=== PATIENT | female | born 1965 | race Caucasian/White ===

== ENCOUNTER → 2020-09-21 | Outpatient (CLI) | payer OTHER ==
--- NOTE | 2020-09-21 14:40 | P.GSHP ---
History of Present Illness H&P Date: 09/21/20 Chief Complaint: abnormal right breast mammogram Samantha is a 55 year old white female seen in consultation for Dr. Candice Dong regarding a mammographic abnormality in her right breast. This was her first 3-D mammogram. It revealed extensive group central medial microcalcifications in the right breast middle depth. This was these were felt to be unchanged however there was some architectural distortion associated with these. The patient also was noted to have chronic nodularity in the 6 to 7 o'clock position of the right breast with coarse dystrophic calcifications probable degenerating fibroid. In the left breast a benign oral cyst calcification was noted. The recommendation was stereotactic core biopsy of the medial microcalcifications in the right breast. The patient does not feel any lumps masses or nodules of concern. No nipple discharge. No new breast pain. She has had bilateral open breast biopsies in the remote past. These were benign. Caffeine: 4 cups of coffee/day Nicotine: Negative Theophylline: occasional Family history: Negative Hormonal history: Menarche: 13 , breast fed: yes, age at first 31 menopause: 53 BCP:no hormones: none Surgical history: C-sections bilateral breast biopsies benign Toenail removed Medical history: none Social history: Nicotine: Negative Alcohol: Occasional Drugs: Negative - Constitutional Constitutional: Denies chills, Denies fever - EENT Comment: wears glasses Ears: deny: decreased hearing, tinnitus Ears, nose, mouth and throat: Denies headache, Denies sore throat - Breasts Breasts: bilateral: as per HPI - Cardiovascular Cardiovascular: Denies chest pain, Denies shortness of breath - Respiratory Respiratory: Denies cough, Denies 7 - Gastrointestinal Gastrointestinal: Denies abdominal pain, Denies diarrhea, Denies nausea, Denies vomiting - Genitourinary (Female) Genitourinary: Denies dysuria, Denies hematuria - Menstruation Menstruation: Reports postmenopausal - Musculoskeletal Musculoskeletal: Denies myalgias - Integumentary Integumentary: Denies pruritus, Denies rash - Neurological Comment: hand tendon pain - Psychiatric Psychiatric: Denies anxiety, Denies depression - Endocrine Endocrine: Denies fatigue, Denies weight change - Hematologic/Lymphatic Comment: none - Allergic/Immunologic Allergic/Immunologic: Reports as per HPI Medications and Allergies Home Medications Medication Instructions Recorded Confirmed Type Calcium Carbonate/Vitamin D3 1 each PO QAM 09/21/20 09/21/20 History [Calcium 500Mg-Vit D3 15Mcg (600 unit)] Cholecalciferol [Vitamin D3 (25 1,000 unit PO HS 09/21/20 09/21/20 History Mcg = 1000 Iu)] Fish Oil/Dha/Epa [Fish Oil 1,200 1 each PO BID 09/21/20 09/21/20 History mg Fish Oil] Magnesium 200 mg PO QAM 09/21/20 09/21/20 History Multivitamins, Thera [Multivitamin 1 tab PO QAM 09/21/20 09/21/20 History (formulary)] Allergies Allergy/AdvReac Type Severity Reaction Status Date / Time adhesive tape Allergy Rash/Hives Unverified 09/21/20 14:06 codeine Allergy Rash/Hives Unverified 09/21/20 14:06 Penicillins Allergy Rash/Hives Unverified 09/21/20 14:06 Surgical - Exam BMI 24 - General well developed, well nourished, no distress - Eyes normal ocular movement - ENT no hearing loss, no congestion - Neck no masses, trachea midline - Respiratory normal respiratory effort, clear to auscultation - Cardiovascular Rhythm: regular Heart Sounds: normal: S1, S2 - Abdomen Abdomen: soft, non tender, no guarding, no rigid, no rebound - Integumentary normal turgor - Neurologic no disoriented, no combative - Musculoskeletal normal gait - Psychiatric oriented to time, oriented to person, oriented to place, speech is normal, memory intact breast exam: BRA 34D inspection: bilateral grad 2 ptosis palpation: Right breast: Multi-positional exam well-healed scar from prior surgery fibrocystic changes. Dense breast tissue no discrete dominant masses or nodules of concern Right axilla: Approximately 1-11/2 cm palpable lymph node Left breast: Multi-positional exam fibrocystic changes, dense breasts, well- healed scar from prior biopsy Left axilla: No adenopathy of concern Results Mammogram results reviewed Assessment and Plan Assessment: Impression: 1. Dense fibroglandular breast tissue 2. Abnormal right breast mammogram 3. Right axillary palpable lymph node Plan: 1. Stereotactic core biopsy right breast 2. Ultrasound right axillary lymph node 3. follow up 1 week after biopsy Risk benefits of stereotactic core biopsy discussed with the patient. These include but are not limited to bleeding, infection, reaction to the anesthetic. Additionally the need to do this via 3-D stereo biopsy versus a 2-D stereo table will be determined by the radiologist. Option of watchful waiting versus open biopsy were discussed but not recommended. CC: Dr. Harvey, Yamel Anguiano N.P.
[2020-09-21 14:49] VITALS: BP 119/69; PULSE 75; RESP 16; TEMP 98.4
--- NOTE | 2020-09-22 09:08 | USB ---
Reason for exam: clinical finding. Indicated problem(s): large axillary lymph nodes in the right breast. Physical Findings: Breast exam performed by Dr. Steve. US Breast Axilla RT Technologist: Kaleigh Gallegos Right breast axilla ultrasound demonstrates no cystic or solid lesion seen. These results were verbally communicated with the patient and result sheet given to the patient on 09/21/20. ASSESSMENT: Negative, BI-RAD 1 RECOMMENDATION: Stereotactic core biopsy of the right breast. Patient is already scheduled for biopsy on 10/04/20.
== END | disposition home or self-care (01) ==
LOC: WWCWWP 13:35
PROVIDERS: ATTEND Surgery
DX: R59.0 Localized enlarged lymph nodes (principal)

== ENCOUNTER → 2020-10-04 | Day surgery (SDC) | payer OTHER ==
[2020-10-04 07:19] VITALS: RESP 16
[2020-10-04 09:44] VITALS: BP 142/76; PULSE 74; TEMP 98.8
--- NOTE | 2020-10-04 16:08 | MM ---
EXAMINATION TYPE: MG stereo VAD BX RT DATE OF EXAM: 10/04/2020 COMPARISON: 08/10/2020 CLINICAL HISTORY: 55-year-old female referred for stereotactic core needle biopsy of right upper inner quadrant microcalcifications and architectural distortion. TECHNIQUE: Stereotactic guided core biopsy of the right breast. FINDINGS: The procedure of stereotactic guided core biopsy was explained to the patient. Benefits, alternatives, and risks were discussed. An informed consent was then obtained. The shortness pathway for biopsy was chosen. Shortness pathway was a superior approach. I performed the localization followed by the remainder of the procedure. A vacuum assisted biopsy gun was used to obtain 12 core samples. The patient tolerated the procedure well. The biopsy was complicated by bleeding and hematoma formation. Approximately 150 ML of blood loss was measured in the collection canister. Patient was kept in the radiology department for short stay after the procedure and then discharged home in stable condition. Targeted calcifications are identified in specimen mammogram. Post biopsy mammogram shows the clip to appear in satisfactory position relative to the targeted area of concern on the preprocedure images. Residual calcifications are present along the inferior biopsy margin. Associated hematoma on mammogram. The nurse provided prolonged compression at the biopsy site with successful hemostasis. IMPRESSION: SUCCESSFUL, STEREOTACTIC GUIDED CORE BIOPSY OF AREA OF CONCERN IN THE UPPER INNER QUADRANT RIGHT BREAST, FULL PATHOLOGY RESULTS TO FOLLOW. NOTE HEMATOMA FORMATION FOLLOWING THE BIOPSY. (THE TARGETED AREA IS COMPRISED OF A LARGE GROUP OF MICROCALCIFICATIONS AND UNDERLYING ARCHITECTURAL DISTORTION). 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 See Surgical Pathology Cancer Case Summary and Comment. Recommendation Surgical consult of the right breast. REINIER
--- NOTE | 2020-10-05 10:01 | USB ---
Reason for exam: additional evaluation requested from abnormal screening. US Breast Limited RT Right limited breast ultrasound including focal area of concern, retroareolar and axilla demonstrates a 2.6mm duct ectasia at 2 o'clock, a 0.4 x 0.4 x 0.3cm oval, benign cyst with debris at 3 o'clock, a 0.4 x 0.4 x 0.4cm oval, benign, cyst with debris at 3 o'clock and a 3.8cm duct ectasia at the posterior nipple. These results were verbally communicated with the patient and result sheet given to the patient on 10/04/20. ASSESSMENT: Suspicious, BI-RAD 4 RECOMMENDATION: Stereotactic core biopsy of the right breast.
== END ==
LOC: RADMAMWWP 06:55
PROVIDERS: ATTEND Surgery
DX: D05.11 Intraductal carcinoma in situ of right breast (principal); L76.01 Intraoperative hemorrhage and hematoma of skin and subcutaneous tissue complicating a dermatologic procedure
CPT/HCPCS: 88305; 88342; 88341; 19081; 76642; A4648; J2001

== ENCOUNTER → 2020-10-12 | Outpatient (CLI) | payer OTHER ==
[2020-10-12 10:16] VITALS: BP 111/69; PULSE 70; RESP 18; TEMP 98.4
--- NOTE | 2020-10-12 11:01 | P.PN ---
Subjective Progress Note Date: 10/12/20 Principal diagnosis: stage IA right breast cancer Samantha is a 55 year old white female status post stereotactic core biopsy of the right breast on . Pathology revealed a 2 mm invasive ductal carcinoma grade 1/2 arising in a background of DCIS. The area of DCIS on the mammogram was approximately 4 cm in size. Postprocedure the patient did develop a hematoma. This is resolving. She is doing well at this time. Objective - Vital Signs Vital signs: Vital Signs Temp 98.4 F 10/12/20 10:11 Pulse 70 10/12/20 10:11 Resp 18 10/12/20 10:11 BP 111/69 10/12/20 10:11 Pulse Ox 100 10/12/20 10:11 Intake & Output 10/11/20 10/12/20 10/12/20 18:59 06:59 18:59 Weight 63.503 kg - Exam BMI 24 - Constitutional General appearance: Present: average body habitus - EENT Eyes: Present: EOMI ENT: Present: hearing grossly normal - Neck Neck: Present: normal ROM - Respiratory Respiratory: bilateral: CTA - Cardiovascular Rhythm: regular Heart sounds: normal: S1, S2 - Gastrointestinal General gastrointestinal: Present: normal bowel sounds, soft - Integumentary Integumentary Comment(s): Achymosis direct sterile core biopsy site, a hematoma present approximately 3 x 2 cm in size Integumentary: Present: normal turgor - Musculoskeletal Musculoskeletal: Present: gait normal - Psychiatric Psychiatric: Present: A&O x's 3, appropriate affect - Additional findings Additional findings: Breast exam: right breast biopsy site with some ecchymosis, hematoma approximately 3 x 2 cm in size, no evidence of infection Right breast is smaller than the left breast Assessment and Plan Assessment: Impression: 1. Stereotactic core biopsy right breast/stage IA invasive ductal carcinoma, DCIS 2. Proximally 4 cm area of microcalcifications suspicious for DCIS right breast 3. We have discussed genetic testing and patient would like to have this done 4. High cholesterol Plan: 1. Presentation of case at tumor board 2. Genetic testing 3. Surgical intervention/we have discussed mastectomy plus or minus reconstruction versus lumpectomy, secondary to the size of the DCIS ( about 4 cm)we are uncertain as to whether our margins may be negative and if they were to be positive we have discussed the need for a mastectomy at this time she would like to attempt a lumpectomy if possible 4. Patient understands that there will be asymmetry between the breast and that she may need to have a symmetry procedure performed of the left breast in the future Surgical plan at this time: Needle localization with bracketing of the area of concern in the right breast, partial mastectomy, possible onco-plastic tissue transfer, possible mastopexy, sentinel node injection right breast, sentinel node biopsy, possible axillary node dissection; using a marker I have drawn on her breast possible lines for incision for resection so she would be able to visualize what this might look like. Risk and benefits of the procedure been discussed with the patient. These include but are not limited to bleeding, infection, reaction to the anesthetic. She understands of margins were to be positive she would need further excision. She also understands there will be asymmetry between the breast. She wishes to proceed. Genetic testing is requested and if this were to be positive she would opt for bilateral mastectomy. CC: Yamel Anguiano/Dr. Harvey encounter 40 minutes, > 50% of time in planning and counselling
== END | disposition home or self-care (01) ==
LOC: WWCWWP 09:43
PROVIDERS: ATTEND Surgery
DX: Z53.9 Procedure and treatment not carried out, unspecified reason (principal)

== ENCOUNTER → 2020-11-06 | Outpatient (CLI) | payer OTHER ==
--- NOTE | 2020-11-06 07:55 | BMR ---
EXAMINATION TYPE: MR breast BILAT wo/w con DATE OF EXAM: 11/06/2020 COMPARISON: Outside 3-D mammogram August 10, 2020 BI-RADS 4 and older outside mammograms. Right br east axilla ultrasound September 21, 2020 BI-RADS 1. Right breast limited ultrasound October 04, 2020 BI-RADS 4. HISTORY: Malignant neoplasm of breast invasive low grade ductal carcinoma in situ on stereotactic roderick ded core biopsy August 10, 2020 TECHNIQUE: A series of fat and water weighted images in the long and short axis views of both breasts are obtained in conjunction with dynamic contrast MRI with subtraction technique. The patient was i njected with 6.5 mL intravenous Gadavist gadolinium contrast. Three-dimensional and additional post processing imaging is created on independent workstation and reviewed during official interpretation of this study. FINDINGS: Breast parenchyma redemonstrated extremely dense. T2 and STIR weighted images show scattere d tiny thin-walled cysts on background extremely dense fibroglandular tissue. No suspicious axillary adenopathy is noted bilaterally. Dynamic postcontrast imaging shows [id number]-wb-psiecoth symmetric nodula r background enhancement evaluation slightly suboptimal. Delayed dynamic postcontrast imaging shows n o evidence for intramammary adenopathy. With regards to the left breast there is a 6 x 4 mm oval well-circumscribed lesion middle depth media l aspect left breast image 75 series 701 for reference at level of nipple that stands out on a backgr ound of more smaller nodular enhancement. Dynamic postcontrast imaging shows gradual enhancement sugg esting benign etiology. No suspicious skin thickening. The chest wall is intact. Regards to the right breast there is a slightly lobulated 1.4 x 1.3 x 1.5 cm thin-walled T1 hyperinte nse and T2 hyperintense fluid collection consistent with postbiopsy hematoma in the upper inner quadr ant anterior to middle depth with with artifact from biopsy clip along its anterior lateral aspect sl ightly more superior in location corresponding to stereotactic guided core biopsy October 04. Some r esidual surrounding enhancement is seen. Small tiny focus of suspicious enhancement with uptake and w ashout along the lateral central margin of the resection cavity seen on both processing images. Remai nder right breast shows no pathologic enhancement or enhancing masses. No abnormal skin thickening. C hest wall is intact. IMPRESSION: Known biopsy-proven malignancy right breast. Single enhancing 6 x 4 mm lesion left breast has progressive enhancement consistent with benign etiology. No convincing evidence for multicentric invasive neoplasm on MRI. BI-RADS 6 biopsy-proven cancer right breast. BI-RADS 2 benign findings left breast Recommendation: Appropriate surgical management for group of calcifications right breast, complete ex cision is advised, right shows minimal suspicious enhancement along the central lateral aspect of the post sampling hematoma.
== END | disposition home or self-care (01) ==
LOC: RADMRIMAIN 05:57
PROVIDERS: ATTEND Surgery
DX: C50.111 Malignant neoplasm of central portion of right female breast (principal); N64.89 Other specified disorders of breast
CPT/HCPCS: 77049; C8937; A9585

== ENCOUNTER → 2020-11-09 | Outpatient (CLI) | payer OTHER ==
[2020-11-09 16:06] VITALS: BP 117/72; PULSE 68; RESP 18; TEMP 98.1
--- NOTE | 2020-11-09 16:22 | P.PN ---
Subjective Progress Note Date: 11/09/20 Principal diagnosis: stage IA right breast cancer Samantha is a 55 year old white female seen in consultation for Dr. Candice Dong regarding a mammographic abnormality in her right breast. This was her first 3-D mammogram. It revealed extensive group central medial micro calcifications in the right breast middle depth. This was these were felt to be unchanged however there was some architectural distortion associated with these. The patient also was noted to have chronic nodularity in the 6 to 7 o'clock position of the right breast with coarse dystrophic calcifications probable degenerating fibroid. In the left breast a benign appearing cyst calcification was noted. The recommendation was stereotactic core biopsy of the medial microcalcifications in the right breast. The patient does not feel any lumps masses or nodules of concern. No nipple discharge. No new breast pain. She has had bilateral open breast biopsies in the remote past. These were benign. The patient had a stereotactic core biopsy performed on [id number]. Pathology revealed a 2 mm focus of invasive ductal carcinoma grade 1/2 arising in a background of DCIS. This was ER+WI+Her2-G1. She did not have genetic testing done. The patient had bilateral breast MRI performed on [id number]. The biopsy-proven cancer in the right breast was identified. Otherwise no lesions of concern in the right breast. No findings of concern were noted in the left breast. Caffeine: 4 cups of coffee/day Nicotine: Negative Theophylline: occasional Family history: Negative Hormonal history: Menarche: 13 , breast fed: yes, age at first 31 menopause: 53 BCP:no hormones: none Surgical history: C-sections bilateral breast biopsies benign Toenail removed Medical history: none Social history: Nicotine: Negative Alcohol: Occasional Drugs: Negative - Constitutional Constitutional: Denies chills, Denies fever - EENT Comment: wears glasses Ears: deny: decreased hearing, tinnitus Ears, nose, mouth and throat: Denies headache, Denies sore throat - Breasts Breasts: bilateral: as per HPI - Cardiovascular Cardiovascular: Denies chest pain, Denies shortness of breath - Respiratory Respiratory: Denies cough, - Gastrointestinal Gastrointestinal: Denies abdominal pain, Denies diarrhea, Denies nausea, Denies vomiting - Genitourinary (Female) Genitourinary: Denies dysuria, Denies hematuria - Menstruation Menstruation: Reports postmenopausal - Musculoskeletal Musculoskeletal: Denies myalgias - Integumentary Integumentary: Denies pruritus, Denies rash - Neurological Comment: hand tendon pain - Psychiatric Psychiatric: Denies anxiety, Denies depression - Endocrine Endocrine: Denies fatigue, Denies weight change - Hematologic/Lymphatic Comment: none - Allergic/Immunologic Allergic/Immunologic: Reports as per HPI Objective - Constitutional General appearance: Present: average body habitus - EENT Eyes: Present: EOMI ENT: Present: hearing grossly normal - Neck Neck: Present: normal ROM - Respiratory Respiratory: bilateral: CTA - Cardiovascular Rhythm: regular Heart sounds: normal: S1, S2 - Gastrointestinal General gastrointestinal: Present: normal bowel sounds, soft - Integumentary Integumentary: Present: normal turgor - Musculoskeletal Musculoskeletal: Present: gait normal - Psychiatric Psychiatric: Present: A&O x's 3, appropriate affect, intact judgment & insight - Additional findings Additional findings: brest exam: BRA: 34C inspection: Right nipple areolar complex slightly lower than the left, grade 2/3 bilateral again with right slightly lower than the left Palpation: Right breast: Multiple positional exam reveals the area of stereo biopsy with resolving hematoma in the upper inner quadrant otherwise no dominant masses or nodules of concern Right axilla: No adenopathy of concern Left breast: Multiple positional exam fibrocystic changes, no dominant masses or nodules of concern Left axilla: No adenopathy of concern Assessment and Plan Assessment: Mammogram and MRI reports reviewed, case presented at tumor board Impression: 1. Stage I a right breast invasive ductal carcinoma upper inner quadrant 2. Approximately 4 cm of microcalcification suspicious for DCIS right breast 3. Genetic testing discussed however insurance declined this 4. High cholesterol 5. Case was presented at tumor board and MRI recommended Plan: 1. Needle localization lumpectomy right breast via mastopexy incision if possible, if not standard incision will be made 2 possible onco-plastic transfer 3. [place] node injection, sentinel node biopsy, possible axillary node dissection Risks and benefits of the procedure discussed with the patient. These include but are not limited to bleeding, infection, possible reaction to the anesthetic. She understands margins are positive she may need further excision. The risk of decreased nipple areolar sensation is discussed as well as necrosis she understands and wishes to proceed. She also understands she will be asymmetry between the breasts. She wishes to proceed. We have discussed the option of a mastectomy and at this time she would not like to have a mastectomy.
== END | disposition home or self-care (01) ==
LOC: WWCWWP 15:50
PROVIDERS: ATTEND Surgery
DX: Z53.9 Procedure and treatment not carried out, unspecified reason (principal)

== ENCOUNTER 2020-12-05 07:12 | Day surgery (SDC) | payer OTHER ==
[2020-11-29 13:20] VITALS: BMI 24.0
[~2020-12-05 07:12] MED LIST: DEXAMETHASONE SOD PHOSPHATE 4 MG/ML 1 ML VIAL IV ONE; HEPARIN SODIUM,PORCINE 5,000 UNIT/ML 1 ML VIAL SQ PRN; HYDROmorphone 0.5 MG/0.5 ML SYRINGE IVP PRN; LACTATED RINGERS 1,000 ML IV SCH; LIDOCAINE 1% (10MG/ML) FOR IV START INTRADERMA PRN; MIDAZOLAM 2 MG/2 ML VIAL IV PRN; ONDANSETRON 4 MG/2 ML VIAL IVP ONE; Pre Op ABX Message 1 EACH MISC MISCELLANE ONE
[2020-12-05] MEDS ORDERED: SCOPOLAMINE 1.5MG/72HR PATCH TRANSDERM ONE (08:04)
[2020-12-05] MEDS ORDERED: LIDOCAINE 1% INJ 10MG/ML (20 ML MDV) SQ ONE (08:53)
--- NOTE | 2020-12-05 09:30 | P.NAPBC ---
NAPBC Queries - NAPBC Queries Was patient's case review presented at [facility] tumor board? If no, comment.: Yes Was patient's pathology reviewed at [facility]? If no, comment.: Yes Was breast conservation surgery offered? If no, comment.: Yes Was sentinel node biopsy offered? If no, comment.: Yes Was diagnosis confirmed by percutaneous core biopsy? If no, comment.: Yes Is patient mastectomy patient?: No Was a preop referral to reconstructive surgeon offered?: No Clinical Stage: stage IA right breast cancer
[2020-12-05] MEDS ORDERED: HEPARIN SODIUM,PORCINE 5,000 UNIT/ML 1 ML VIAL SQ ONE (09:37)
--- NOTE | 2020-12-05 09:52 | NM ---
EXAMINATION TYPE: NM sentinel node injection DATE OF EXAM: 12/05/2020 COMPARISON: 08/10/2020 HISTORY: 55-year-old female right breast intraductal carcinoma referred for sentinel node injection. TECHNIQUE AND FINDINGS: The procedure of sentinel lymph node injection was explained to the patient. The benefits, alternatives, and risks were discussed. An informed consent was then obtained. Overlying skin is cleaned with sterile alcohol. Following this, 542 uCi Tc99m Tilmanocept was inject ed in the upper outer aspect of the right nipple intradermally. The patient tolerated the procedure well without any immediate complication. The patient was kept in the radiology department for short stay after the procedure and then taken to surgery for surgical p rocedure what is presumed intraoperative gamma probe will be used for sentinel lymph node detection. IMPRESSION: Successful right breast radiotracer injection for sentinel node localization as above.
[2020-12-05] MEDS ORDERED: PROPOFOL 10 MG/ML 20 ML VIAL IV ONE ×2 (10:01)
[2020-12-05] MEDS ORDERED: PHENYLEPHRINE 10 MG/ML VIAL ONE ×2 (10:01)
[2020-12-05] MEDS ORDERED: MIDAZOLAM 2 MG/2 ML VIAL ONE ×2 (10:01)
[2020-12-05] MEDS ORDERED: fentaNYL (PF) 50 MCG/ML 2 ML AMP ONE ×2 (10:01)
[2020-12-05] MEDS ORDERED: LIDOCAINE 1% INJ 10MG/ML (20 ML MDV) ONE ×2 (10:01)
[2020-12-05] MEDS ORDERED: LACTATED RINGERS 1,000 ML IV ONE (11:34)
--- NOTE | 2020-12-05 12:43 | P.OP ---
Date of Procedure: 12/05/20 Preoperative Diagnosis: right breast cancer Postoperative Diagnosis: same Procedure(s) Performed: 1.sentinal node biopsy 2. needle localization and lumpectomy 3. onco-plastic tissue transfer; 133 square centimeters 4. donought mastopexy Anesthesia: NATASHAA Surgeon: Stephanie Steve Estimated Blood Loss (ml): 25 IV fluids (ml): 1,100 Pathology: other (Daykin node, breast tissue) Condition: stable Disposition: same day Indications for Procedure: Right breast invasive ductal carcinoma Operative Findings: Dense breast tissue Description of Procedure: Samantha is a 55-year-old white female who presents for a resection for invasive ductal carcinoma right breast. Prior to coming to the operating room she was seen in the radiology department for needle localization of the area of concern with bracketing 2 needles was performed and sentinel node injection. In the preoperative area the patient was examined in the upright position and marked such that the incision could be a donut mastopexy. The patient was then taken to the operating room. Following induction of anesthesia interrogation of the axilla revealed that the radioactive substance had traveled to the axilla. The patient was then prepped and draped in a sterile fashion. The using the neoprobe of greatest radioactivity was identified in the axilla. An incision was made and carried down to the area of greatest radioactivity. Wide excision was performed. The 10 second count on the lymph node 1006. The 10 second background count was minimal. After assured that hemostasis was attained the wound was well irrigated. The deep tissues were closed using 3-0 Vicryl suture. The skin was reapproximated using a 4-0 Monocryl. Steri-Strips were applied. Following this the area of the breast was approached The incision for the donut mastopexy had been marked in the preoperative area. The skin was de-epithelialized. The breast parenchyma was entered at the superior aspect. Dissection was performed along the subcutaneous tissue plane. The area of the needles was identified. Wide excision of the breast tissue was performed around the needles. The defect was approximately 9 x 7 cm her 63 cm. Titanium clips were placed. The specimen was painted for orientation. Superior and inferior pelvis were mobilized. Superiorly it was 7 by 5 cm, or 35 cm and inferiorly 7 by 5 cm or 35 cm. The specimen was painted for orientation and radiograph of the specimen revealed the area of concern had been removed. Surgicel and in powder form was placed. The pillars of breast tissue were brought together using 3-0 Vicryl suture. The subcutaneous tissues were closed using 3-0 Vicryl suture. This was followed by closure of the subcuticular tissue using a 4-0 [place]-Demetrius. This done in the right inferolateral fashion. Following this the skin was further reapproximated with a 4-0 nylon suture. The patient tolerated the procedure in stable condition. All instrument and sponge counts were correct at the end of the case.
--- NOTE | 2020-12-05 12:45 | P.DS ---
Providers Attending physician: Stephanie Steve Primary care physician: Girish Harvey Plan - Discharge Summary Discharge Rx Participant: No New Discharge Prescriptions: No Action Cholecalciferol [Vitamin D3 (25 Mcg = 1000 Iu)] 1,000 unit PO HS Calcium Carbonate/Vitamin D3 [Calcium 500Mg-Vit D3 15Mcg (600 unit)] 1 each PO QAM Multivitamins, Thera [Multivitamin (formulary)] 1 tab PO QAM Magnesium 200 mg PO QAM Fish Oil/Dha/Epa [Fish Oil 1,200 mg Fish Oil] 1 each PO BID Ascorbic Acid [Vitamin C] 100 mg PO DAILY Discharge Medication List Calcium Carbonate/Vitamin D3 [Calcium 500Mg-Vit D3 15Mcg (600 unit)] 1 each PO QAM 09/21/20 [History] Cholecalciferol [Vitamin D3 (25 Mcg = 1000 Iu)] 1,000 unit PO HS 09/21/20 [History] Fish Oil/Dha/Epa [Fish Oil 1,200 mg Fish Oil] 1 each PO BID 09/21/20 [History] Magnesium 200 mg PO QAM 09/21/20 [History] Multivitamins, Thera [Multivitamin (formulary)] 1 tab PO QAM 09/21/20 [History] Ascorbic Acid [Vitamin C] 100 mg PO DAILY 09/26/20 [History] Follow up Appointment(s)/Referral(s): Stephanie Steve MD [STAFF PHYSICIAN] - 1 Week Activity/Diet/Wound Care/Special Instructions: wear bra at all times may shower after [address] until seen by DR. Mcdaniels Discharge Disposition: HOME SELF-CARE
[2020-12-05 12:53] VITALS: TEMP 98.6
[2020-12-05 13:48] VITALS: RESP 16
[2020-12-05] MEDS ORDERED: traMADol 50 MG TAB ONE (13:50)
[2020-12-05] MEDS ORDERED: traMADol 50 MG TAB PO ONE (13:52)
[2020-12-05 14:27] VITALS: BP 114/68; PULSE 87
--- NOTE | 2020-12-05 19:36 | MM ---
EXAMINATION TYPE: MG pre op needle loc RT, MG surgical specimen RT DATE OF EXAM: 12/05/2020 COMPARISON: 08/10/2020 and 10/04/2020 CLINICAL HISTORY: 55-year-old female biopsy-proven intraductal carcinoma in the right breast. TECHNIQUE: Needle localization with wire placement (2 wire bracketing) and surgical excision of area of concern in the upper quadrant right breast. FINDINGS: The procedure of needle localization with wire placement and than surgical excision was explained to the patient. Benefits, alternatives, and risks were discussed. An informed consent was then obtained. The shortest pathway for procedure was chosen. Shortest pathway was a superior approach. The overlying skin was prepped and draped in usual sterile fashion. Lidocaine was used as anesthetic into the skin and subcutaneous tissue up to the level of area of concern. Along the anterolateral margin of the calcifications, a 7 cm Kopans needle was utilized. Along the posteromedial margin of the calcifications, a 9 cm Kopans needle was utilized. A replaced via a CC from above approach under mammographic guidance. Subsequent 90 degrees mammogram show the needles to be in satisfactory position relative to the targeted area. At this point, wire was placed and the needles were withdrawn. The wires were fixed to patient's skin. Images were marked for surgeon. The patient tolerated the procedure well without any immediate complication. The patient was kept in the radiology department for short stay after the procedure and then taken to surgery for surgical excision. Targeted calcifications , clip, and wire are identified in specimen mammogram. The patient was kept in hospital for short stay after the procedure and then discharged home in stable condition. IMPRESSION: Successful, uncomplicated needle localization with wire placement (2 wire bracketing) and surgical excision of biopsy-proven right breast cancer in the upper inner quadrant; full pathology results to follow. Pathology Results: Benign A. SENTINEL LYMPH NODE, RIGHT AXILLA, EXCISION: One sentinel lymph node, negative for metastatic carcinoma (0/1). MARTIN and CK7 staining with appropriate controls on blocks A1-A2 each negative for carcinoma cells. B. SKIN AND SOFT TISSUE, RIGHT BREAST, EXCISION: Benign skin with focal chronic inflammation. Negative for malignancy. C. BREAST, RIGHT, LUMPECTOMY: Sclerosing adenosis and biopsy site changes with microcalcification, fibrocystic change and focal usual ductal hyperplasia. Negative for residual in situ carcinoma or invasive carcinoma (See Surgical Pathology Cancer Case Summary and comment). Benign margins of resection. Recommendation See previous positive malignancy biopsy results. MTDD
== END 2020-12-05 15:25 | disposition home or self-care (01) ==
LOC: OR 07:12
PROVIDERS: ATTEND Surgery
DX: C50.211 Malignant neoplasm of upper-inner quadrant of right female breast (principal); L08.9 Local infection of the skin and subcutaneous tissue, unspecified; N60.21 Fibroadenosis of right breast; N60.11 Diffuse cystic mastopathy of right breast; R92.0 Mammographic microcalcification found on diagnostic imaging of breast; E78.00 Pure hypercholesterolemia, unspecified; E78.5 Hyperlipidemia, unspecified; Z98.890 Other specified postprocedural states; Z78.0 Asymptomatic menopausal state; Z88.5 Allergy status to narcotic agent; Z88.0 Allergy status to penicillin; Z91.013 Allergy to seafood
CPT/HCPCS: 38525; 19301; 14301; 14302; 88305; 88342; 88307; 88341; 76098; 19281; 38792; 19316; A9520; J2250; J1644; J1100; J2370; J2405; J2001; J3010; J2704

== ENCOUNTER → 2020-12-14 | Outpatient (CLI) | payer OTHER ==
--- NOTE | 2020-12-14 08:58 | P.PN ---
Progress Note - Text Progress Note Date: 12/14/20 Samantha is a 55 year old white female status post right breast lumpectomy and SNB on 12-05-20. Wheeler node was negative for metastatic cancer. The lumpectomy site revealed sclerosing adenosis and biopsy site changes with microcalcification, fibrocystic change and focal usual ductal hyperplasia. Negative for residual in situ or invasive carcinoma. The original ulcer biopsy revealed a 2 mm focus of invasive cancer and an area of DCIS. The original lesion was ER positive CA positive and HER-2 negative. Physical examination: Lungs: Clear Heart: Regular rate and rhythm Incision in the axilla is clean and dry Steri-Strips in place Periareolar incision clean and dry nylon sutures removed Impression: 1. Stage I a right breast cancer completely excised, no residual cancer on lumpectomy specimen Plan: 1. Follow up with medical oncology 2. Follow-up radiation oncology 3. Follow-up here in 3 months 4. Sutures removed 5. Follow-up here sooner if any questions or concerns CC: Yamel Ruth
[2020-12-14 09:09] VITALS: BP 118/75; PULSE 84; RESP 18; TEMP 97.9
== END | disposition home or self-care (01) ==
LOC: WWCWWP 08:37
PROVIDERS: ATTEND Surgery
DX: Z53.9 Procedure and treatment not carried out, unspecified reason (principal)

== ENCOUNTER → 2021-03-15 | Outpatient (CLI) | payer OTHER ==
[2021-03-15 14:43] VITALS: BP 123/84; PULSE 63; RESP 18; TEMP 98.7
--- NOTE | 2021-03-15 15:04 | P.PN ---
Subjective Progress Note Date: 03/15/21 Principal diagnosis: right breast cancer surveillance stage IA right breast cancer Samantha is a 55 year old white female seen in consultation for Yamel Anguiano, and Dr. Harvey regarding a mammographic abnormality in her right breast. This was her first 3-D mammogram. It revealed extensive group central medial microcalcifications in the right breast middle depth. These were felt to be unchanged however there was some architectural distortion associated with these. The patient also was noted to have chronic nodularity in the 6 to 7 o'clock position of the right breast with coarse dystrophic calcifications probable degenerating fibroid. In the left breast a benign appearing cyst calcification was noted. The recommendation was stereotactic core biopsy of the medial microcalcifications in the right breast. The patient did not feel any lumps masses or nodules of concern. No nipple discharge. No new breast pain. She has had bilateral open breast biopsies in the remote past. These were benign. The patient had a stereotactic core biopsy performed on [id number]. Pathology revealed a 2 mm focus of invasive ductal carcinoma grade 1/2 arising in a background of DCIS. This was ER+NH+Her2-G1. She did not have genetic testing done. The patient had bilateral breast MRI performed on [id number]. The biopsy-proven cancer in the right breast was identified. Otherwise no lesions of concern in the right breast. No findings of concern were noted in the left breast. She underwent a right breast partial mastecotmy on 12-05-20. Pathology showed no residual tumor, SLN (-). [id number]+Her2- stage IA. She choose not to have radiation therapy after the surgery. She is on Femara which she started 2020. She did not have any chemotherapy. She was not concerned about any new lumps masses or nodules in either breast. She is not complaining of any nipple discharge or skin changes. She does complain of some asymmetry between the breast. Caffeine: 4 cups of coffee/day Nicotine: Negative Theophylline: occasional Family history: Negative Hormonal history: Menarche: 13 , breast fed: yes, age at first 31 menopause: 53 BCP:no hormones: none Surgical history: C-sections bilateral breast biopsies benign Toenail removed Medical history: none Social history: Nicotine: Negative Alcohol: Occasional Drugs: Negative - Constitutional Constitutional: Denies chills, Denies fever - EENT Comment: wears glasses Ears: deny: decreased hearing, tinnitus Ears, nose, mouth and throat: Denies headache, Denies sore throat - Breasts Breasts: bilateral: as per HPI - Cardiovascular Cardiovascular: Denies chest pain, Denies shortness of breath - Respiratory Respiratory: Denies cough, - Gastrointestinal Gastrointestinal: Denies abdominal pain, Denies diarrhea, Denies nausea, Denies vomiting - Genitourinary (Female) Genitourinary: Denies dysuria, Denies hematuria - Menstruation Menstruation: Reports postmenopausal - Musculoskeletal Musculoskeletal: Denies myalgias - Integumentary Integumentary: Denies pruritus, Denies rash - Neurological Comment: hand tendon pain - Psychiatric Psychiatric: Denies anxiety, Denies depression - Endocrine Endocrine: Denies fatigue, Denies weight change - Hematologic/Lymphatic Comment: none - Allergic/Immunologic Allergic/Immunologic: Reports as per HPI Objective - Constitutional General appearance: Present: average body habitus - EENT Eyes: Present: EOMI ENT: Present: hearing grossly normal - Neck Neck: Present: normal ROM - Respiratory Respiratory: bilateral: CTA - Cardiovascular Rhythm: regular Heart sounds: normal: S1, S2 - Gastrointestinal General gastrointestinal: Present: normal bowel sounds, soft - Integumentary Integumentary: Present: normal turgor - Musculoskeletal Musculoskeletal: Present: gait normal - Psychiatric Psychiatric: Present: A&O x's 3, appropriate affect, intact judgment & insight Objective - Vital Signs Vital signs: Vital Signs Temp 98.7 F 03/15/21 14:39 Pulse 63 03/15/21 14:39 Resp 18 03/15/21 14:39 BP 123/84 03/15/21 14:39 Pulse Ox 100 03/15/21 14:39 Intake & Output 03/14/21 03/15/21 03/15/21 18:59 06:59 18:59 Weight 62.596 kg - Exam BMI 23.7 - Constitutional General appearance: Present: average body habitus - EENT Eyes: Present: EOMI ENT: Present: hearing grossly normal - Neck Neck: Present: normal ROM - Respiratory Respiratory: bilateral: CTA - Cardiovascular Rhythm: regular Heart sounds: normal: S1, S2 - Musculoskeletal Musculoskeletal: Present: gait normal - Psychiatric Psychiatric: Present: A&O x's 3, appropriate affect, intact judgment & insight - Additional findings Additional findings: Breast Exam: Block: Right breast be/left breast C after surgery Inspection: Well-healed scar from prior surgery asymmetry of size of the breast Palpation: Right breast: Multiple positional exam fibrocystic changes no dominant masses or nodules of concern Right axilla: No adenopathy of concern Left breast: Fibrocystic changes no dominant masses or nodules of concern Left axilla: No adenopathy of concern Assessment and Plan Assessment: Impression: 1. Bilateral mammogram in July 2. Patient with asymmetry of the breast at this time she is not interested in a symmetry procedure on the left but would like to have a past basis for the right breast were going to refer her to write and flip this 3. Continue Femara and continue to follow with Dr. Muñoz Plan: 1. Okay appointment amylase and flip this 2. Follow-up here in July after bilateral mammogram 2. Follow up sooner if any questions or concerns Cc: Dr. Muñoz, Dr. Harvey
== END | disposition home or self-care (01) ==
LOC: WWCWWP 14:20
PROVIDERS: ATTEND Surgery
DX: N64.89 Other specified disorders of breast (principal)

== ENCOUNTER → 2021-08-13 | Outpatient (CLI) | payer OTHER ==
--- NOTE | 2021-08-14 07:42 | MM ---
Reason for exam: follow-up at short interval from prior study. History: Patient is postmenopausal and has history of breast cancer at age 55. Benign MG pre op needle loc RT of the right breast, December 05, 2020. Lumpectomy of the right breast, December 05, 2020. Malignant MG stereo VAD BX RT of the right breast, October 04, 2020. Benign excisional biopsy of both breasts. Taking other hormone for 8 months. Physical Findings: Nurse did not find any significant physical abnormalities on exam. MG 3D Diag Mammo W/Cad ARRON Bilateral CC and MLO view(s) were taken. The breast tissue is heterogeneously dense. This may lower the sensitivity of mammography. Stable scattered punctate calcifications. Post lumpectomy changes right breast. No significant new findings when compared with previous films. These results were verbally communicated with the patient and result sheet given to the patient on 08/13/21. ASSESSMENT: Benign, BI-RAD 2 RECOMMENDATION: Follow-up diagnostic mammogram of both breasts in 1 year.
== END | disposition home or self-care (01) ==
LOC: RADMAMWWP 14:12
PROVIDERS: ATTEND Surgery
DX: R92.1 Mammographic calcification found on diagnostic imaging of breast (principal); Z78.0 Asymptomatic menopausal state; Z85.3 Personal history of malignant neoplasm of breast; Z79.899 Other long term (current) drug therapy
CPT/HCPCS: 77062; 77066

== ENCOUNTER → 2021-08-17 | Outpatient (CLI) | payer OTHER ==
[2021-08-17 13:18] VITALS: BP 123/77; PULSE 84; RESP 16; TEMP 98.5
--- NOTE | 2021-08-17 13:37 | P.PN ---
Subjective Progress Note Date: 08/17/21 Principal diagnosis: right breast stage IA invasive ductal cancer right breast cancer surveillance stage IA right breast cancer The patient had a right breast stereotactic core biopsy performed on [id number]. Pathology revealed a 2 mm focus of invasive ductal carcinoma grade 1/2 arising in a background of DCIS. This was ER+PA+Her2-G1. She did not have genetic testing done. The patient had bilateral breast MRI performed on [id number]. The biopsy-proven cancer in the right breast was identified. Otherwise no lesions of concern in the right breast. No findings of concern were noted in the left breast. She underwent a right breast partial mastecotmy on 12-05-20. Pathology showed no residual tumor, SLN (-). [id number]+PA+Her2- stage IA. She choose not to have radiation therapy after the surgery. She is on Femara which she started 2020. She did not have any chemotherapy. She was not concerned about any new lumps masses or nodules in either breast. She is not complaining of any nipple discharge or skin changes. She does complain of some asymmetry between the breast. She is not complaining of any changes of concern in either breast at this time; She had a bilateral mammogram on 08-13-21 which was BENIGN BIRAD 2. Caffeine: 4 cups of coffee/day Nicotine: Negative Theophylline: occasional Family history: Negative Hormonal history: Menarche: 13 , breast fed: yes, age at first 31 menopause: 53 BCP:no hormones: none Surgical history: C-sections bilateral breast biopsies benign Toenail removed right breast lumpectomy and SNB Medical history: none Social history: Nicotine: Negative Alcohol: Occasional Drugs: Negative - Constitutional Constitutional: Denies chills, Denies fever - EENT Comment: wears glasses Ears: deny: decreased hearing, tinnitus Ears, nose, mouth and throat: Denies headache, Denies sore throat - Breasts Breasts: bilateral: as per HPI - Cardiovascular Cardiovascular: Denies chest pain, Denies shortness of breath - Respiratory Respiratory: Denies cough, - Gastrointestinal Gastrointestinal: Denies abdominal pain, Denies diarrhea, Denies nausea, Denies vomiting - Genitourinary (Female) Genitourinary: Denies dysuria, Denies hematuria - Menstruation Menstruation: Reports postmenopausal - Musculoskeletal Musculoskeletal: Denies myalgias - Integumentary Integumentary: Denies pruritus, Denies rash - Neurological Comment: hand tendon pain - Psychiatric Psychiatric: Denies anxiety, Denies depression - Endocrine Endocrine: Denies fatigue, Denies weight change - Hematologic/Lymphatic Comment: none - Allergic/Immunologic Allergic/Immunologic: Reports as per HPI Objective - Constitutional General appearance: Present: average body habitus - EENT Eyes: Present: EOMI ENT: Present: hearing grossly normal - Neck Neck: Present: normal ROM - Respiratory Respiratory: bilateral: CTA - Cardiovascular Rhythm: regular Heart sounds: normal: S1, S2 - Gastrointestinal General gastrointestinal: Present: normal bowel sounds, soft - Integumentary Integumentary: Present: normal turgor - Musculoskeletal Musculoskeletal: Present: gait normal - Psychiatric Psychiatric: Present: A&O x's 3, appropriate affect, intact judgment & insight Objective - Vital Signs Vital signs: Vital Signs Temp 98.5 F 08/17/21 13:15 Pulse 84 08/17/21 13:15 Resp 16 08/17/21 13:15 BP 123/77 08/17/21 13:15 Pulse Ox 96 08/17/21 13:15 Intake & Output 08/16/21 08/17/21 08/17/21 18:59 06:59 18:59 Weight 62.596 kg - Constitutional General appearance: Present: cooperative - EENT Eyes: Present: EOMI ENT: Present: hearing grossly normal - Respiratory Respiratory: bilateral: CTA - Cardiovascular Rhythm: regular Heart sounds: normal: S1, S2 - Gastrointestinal General gastrointestinal: Present: soft - Integumentary Integumentary: Present: normal turgor - Musculoskeletal Musculoskeletal: Present: gait normal - Psychiatric Psychiatric: Present: A&O x's 3, appropriate affect, intact judgment & insight - Additional findings Additional findings: Breast Exam: BRA: 34D inspection: grade 2 ptosis, left grade 2/3 ptosis palpation: right breast: Well-healed scar from prior surgery, no dominant masses or nodules of concern a multi-positional exam Right axilla: No adenopathy of concern Left breast: Multi-positional exam no dominant masses or nodules of concern Left axilla: No adenopathy of concern Assessment and Plan Assessment: Impression: 1. Patient status post right breast lumpectomy and sentinel node biopsy for stage I invasive ductal carcinoma November, no evidence of recurrence 2. Patient opted to forego radiation therapy 3. Patient is presently on Femara Plan: 1. Continue Femara 2. Repeat bilateral mammogram in 1 year 3. Follow-up here in 4 months for examination CC: Dr. Harvey
== END ==
LOC: WWCWWP 12:46
PROVIDERS: ATTEND Surgery
DX: Z08 Encounter for follow-up examination after completed treatment for malignant neoplasm (principal); Z85.3 Personal history of malignant neoplasm of breast; Z79.811 Long term (current) use of aromatase inhibitors; Z91.048 Other nonmedicinal substance allergy status; Z88.5 Allergy status to narcotic agent; Z88.0 Allergy status to penicillin; Z91.013 Allergy to seafood; Z98.890 Other specified postprocedural states

== ENCOUNTER → 2022-08-14 | Outpatient (CLI) | payer BC ==
--- NOTE | 2022-08-14 13:14 | MM ---
Reason for Exam: Additional evaluation requested from prior study. Last screening mammogram was performed 12 month(s) ago. Patient History: Menarche at age 13. First Full-Term at age 31. Late child-bearing (after 31). Postmenopausal. Patient has history of breast feeding. Breast cancer, age 55. Bilateral Benign Excisional Biopsy. 12/05/2020, Lumpectomy on the Right side. 12/05/2020, Benign Core Biopsy on the right side. 10/04/2020, Malignant Core Biopsy on the right side. Prior Study Comparison: 08/13/2021 Bilateral Diagnostic Mammogram, [facility]. Tissue Density: The breast tissue is heterogeneously dense. This may lower the sensitivity of mammography. Findings: Analyzed By CAD. Stable bilateral postoperative changes. There are stable benign calcifications noted. No distinct mass or suspicious distortion seen. Overall Assessment: Benign, BI-RAD 2 Management: Diagnostic Mammogram of both breasts in 1 year. A clinical breast exam by your physician is recommended on an annual basis and results should be correlated with mammographic findings. This exam should not preclude additional follow-up of suspicious palpable abnormalities. Results were given to the patient verbally at the time of exam. Electronically signed and approved by: Sadiq Lobo M.D. Radiologis
== END | disposition home or self-care (01) ==
LOC: RADMAMWWP 11:00
PROVIDERS: ATTEND Surgery
DX: R92.8 Other abnormal and inconclusive findings on diagnostic imaging of breast (principal); Z85.3 Personal history of malignant neoplasm of breast
CPT/HCPCS: 77062; 77066

== ENCOUNTER → 2022-08-22 | Outpatient (CLI) | payer BC ==
[2022-08-22 13:45] VITALS: BP 105/67; PULSE 70; RESP 16; TEMP 98.3
--- NOTE | 2022-08-22 13:58 | P.PN ---
Subjective Progress Note Date: 08/22/22 Principal diagnosis: 2019 right bresat stage I invasive ductal cancer; [id number]+KS+Her2-G2 right breast stage IA invasive ductal cancer right breast cancer surveillance The patient had a right breast stereotactic core biopsy performed on . Pathology revealed a 2 mm focus of invasive ductal carcinoma grade 1/2 arising in a background of DCIS. This was ER+KS+Her2-G1. She did not have genetic testing done. The patient had bilateral breast MRI performed on [id number]. The biopsy-proven cancer in the right breast was identified. Otherwise no lesions of concern in the right breast. No findings of concern were noted in the left breast. She underwent a right breast partial mastecotmy on 12-05-20. Pathology showed no residual tumor, SLN (-). V4LeSrN1HP+KS+Her2- stage IA. She choose not to have radiation therapy after the surgery. She is on Femara which she started 2020. She did not have any chemotherapy. She was not concerned about any new lumps masses or nodules in either breast. She is not complaining of any nipple discharge or skin changes. She does complain of some asymmetry between the breast. She is not complaining of any changes of concern in either breast at this time; She had a bilateral mammogram on 08-14-22 which was BENIGN BIRAD 2. recently started on estrace cream for vaginal dryness by medical oncology Caffeine: 4 cups of coffee/day Nicotine: Negative Theophylline: occasional Family history: Negative Hormonal history: Menarche: 13 , breast fed: yes, age at first 31 menopause: 53 BCP:no hormones: none Surgical history: C-sections bilateral breast biopsies benign Toenail removed right breast lumpectomy and SNB Medical history: none Social history: Nicotine: Negative Alcohol: Occasional Drugs: Negative - Constitutional Constitutional: Denies chills, Denies fever - EENT Comment: wears glasses Ears: deny: decreased hearing, tinnitus Ears, nose, mouth and throat: Denies headache, Denies sore throat - Breasts Breasts: bilateral: as per HPI - Cardiovascular Cardiovascular: Denies chest pain, Denies shortness of breath - Respiratory Respiratory: Denies cough, - Gastrointestinal Gastrointestinal: Denies abdominal pain, Denies diarrhea, Denies nausea, Denies vomiting - Genitourinary (Female) Genitourinary: Denies dysuria, Denies hematuria - Menstruation Menstruation: Reports postmenopausal - Musculoskeletal Musculoskeletal: Denies myalgias - Integumentary Integumentary: Denies pruritus, Denies rash - Neurological Comment: hand tendon pain - Psychiatric Psychiatric: Denies anxiety, Denies depression - Endocrine Endocrine: Denies fatigue, Denies weight change - Hematologic/Lymphatic Comment: none - Allergic/Immunologic Allergic/Immunologic: Reports as per HPI Objective - Vital Signs Vital signs: Vital Signs Temp 98.3 F 08/22/22 13:41 Pulse 70 08/22/22 13:41 Resp 16 08/22/22 13:41 BP 105/67 08/22/22 13:41 Pulse Ox 100 08/22/22 13:41 FiO2 Intake & Output 08/21/22 08/22/22 08/22/22 18:59 06:59 18:59 Weight 63.049 kg - Constitutional General appearance: Present: cooperative - EENT Eyes: Present: EOMI ENT: Present: hearing grossly normal - Neck Neck: Present: normal ROM - Respiratory Respiratory: bilateral: CTA - Cardiovascular Rhythm: regular Heart sounds: normal: S1, S2 - Integumentary Integumentary: Present: normal turgor - Musculoskeletal Musculoskeletal: Present: gait normal - Psychiatric Psychiatric: Present: A&O x's 3, appropriate affect, intact judgment & insight - Additional findings Additional findings: Breast Exam: BRA: 34D Inspection: right breast slightly smaller than left breast; bilateral grade 2 ptosis palpation; right breast: Positive scar from prior surgery, no dominant masses or nodules of concern were multiple positional exam Right axilla: No adenopathy of concern Left breast: Multi-positional exam no dominant masses or nodules of concern Left axilla: No adenopathy of concern Patient is wearing a Silastic sleeve on the right arm secondary to fullness that she feels it when she does not wear the sleeve, she only wears the sleeve at work she does not wear it at night Assessment and Plan Assessment: Impression: Right breast stage I invasive ductal carcinoma no evidence of recurrence diagnosed 2020 Asymmetry of the breasts secondary to right breast surgery Mild lymphedema right arm controlled with silastic sleeve Plan: Continue Femara Repeat bilateral mammogram in 1 year Follow-up examination here in 6 months Continue elastic sleeve as needed regarding mild lymphedema CC: Dr. Harvey
== END | disposition home or self-care (01) ==
LOC: WWCWWP 13:31
PROVIDERS: ATTEND Surgery
DX: Z53.9 Procedure and treatment not carried out, unspecified reason (principal)

== ENCOUNTER → 2023-02-13 | Outpatient (CLI) | payer BC ==
[2023-02-13 12:54] VITALS: BP 121/73; PULSE 74; RESP 18; TEMP 98.8
--- NOTE | 2023-02-13 13:13 | P.PN ---
Subjective Progress Note Date: 02/13/232019 right breast stage I invasive ductal cancer; [id number]+MT+Her2-G2 right breast cancer surveillance The patient had a right breast stereotactic core biopsy performed on . Pathology revealed a 2 mm focus of invasive ductal carcinoma grade 1/2 arising in a background of DCIS. This was ER+MT+Her2-G1. She did not have genetic testing done. The patient had bilateral breast MRI performed on [id number]. The biopsy-proven cancer in the right breast was identified. Otherwise no lesions of concern in the right breast. No findings of concern were noted in the left breast. She underwent a right breast partial mastecotmy on 12-05-20. Pathology showed no residual tumor, SLN (-). T7NqThL4OD+MT+Her2- stage IA. She choose not to have radiation therapy after the surgery. She is on Femara which she started 2020. She did not have any chemotherapy. She was not concerned about any new lumps masses or nodules in either breast. She is not complaining of any nipple discharge or skin changes. She does complain of some asymmetry between the breast. She is not complaining of any changes of concern in either breast at this time; She had a bilateral mammogram on 08-14-22 which was BENIGN BIRAD 2. recently started on estrace cream for vaginal dryness by medical oncology she uses this twice a week Caffeine: 4 cups of coffee/day Nicotine: Negative Theophylline: occasional Family history: Negative Hormonal history: Menarche: 13 , breast fed: yes, age at first 31 menopause: 53 BCP:no hormones: none Surgical history: C-sections bilateral breast biopsies benign Toenail removed right breast lumpectomy and SNB Medical history: none Social history: Nicotine: Negative Alcohol: Occasional Drugs: Negative - Constitutional Constitutional: Denies chills, Denies fever - EENT Comment: wears glasses Ears: deny: decreased hearing, tinnitus Ears, nose, mouth and throat: Denies headache, Denies sore throat - Breasts Breasts: bilateral: as per HPI - Cardiovascular Cardiovascular: Denies chest pain, Denies shortness of breath - Respiratory Respiratory: Denies cough, - Gastrointestinal Gastrointestinal: Denies abdominal pain, Denies diarrhea, Denies nausea, Denies vomiting - Genitourinary (Female) Genitourinary: Denies dysuria, Denies hematuria - Menstruation Menstruation: Reports postmenopausal - Musculoskeletal Musculoskeletal: Denies myalgias - Integumentary Integumentary: Denies pruritus, Denies rash - Neurological Comment: hand tendon pain - Psychiatric Psychiatric: Denies anxiety, Denies depression - Endocrine Endocrine: Denies fatigue, Denies weight change - Hematologic/Lymphatic Comment: none - Allergic/Immunologic Allergic/Immunologic: Reports as per HPI Objective - Vital Signs Vital signs: Vital Signs Temp 98.8 F 02/13/23 12:51 Pulse 74 02/13/23 12:51 Resp 18 02/13/23 12:51 BP 121/73 02/13/23 12:51 Pulse Ox 99 02/13/23 12:51 FiO2 Intake & Output 02/12/23 02/13/23 02/13/23 18:59 06:59 18:59 Weight 61.235 kg - Constitutional General appearance: Present: cooperative - EENT Eyes: Present: EOMI ENT: Present: hearing grossly normal - Neck Neck: Present: normal ROM - Respiratory Respiratory: bilateral: CTA - Cardiovascular Rhythm: regular Heart sounds: normal: S1, S2 - Gastrointestinal General gastrointestinal: Present: soft - Integumentary Integumentary: Present: normal turgor - Musculoskeletal Musculoskeletal: Present: gait normal - Psychiatric Psychiatric: Present: A&O x's 3, appropriate affect, intact judgment & insight - Additional findings Additional findings: Breast Exam: BRA: 34D Inspection: right breast slightly smaller than left breast; bilateral grade 2 ptosis palpation; right breast: scar from prior surgery, no dominant masses or nodules of concern were multiple positional exam Right axilla: No adenopathy of concern Left breast: Multi-positional exam no dominant masses or nodules of concern Left axilla: No adenopathy of concern Patient is wearing a Silastic sleeve on the right arm secondary to fullness that she feels it when she does not wear the sleeve, she only wears the sleeve at work she does not wear it at night Assessment and Plan Assessment: Impression: Right breast stage I invasive ductal carcinoma no evidence of recurrence diagnosed 2019 Asymmetry of the breasts secondary to right breast surgery Mild lymphedema right arm controlled with elastic sleeve given the option of seeing lymphedema specialist and she declined Plan: Continue Femara bilateral mammogram in July 2023 and follow up continue to follow with medical oncology Continue elastic sleeve as needed regarding mild lymphedema CC: Dr. Harvey
== END ==
LOC: WWCWWP 12:33
PROVIDERS: ATTEND Surgery
DX: Z85.3 Personal history of malignant neoplasm of breast (principal); I89.0 Lymphedema, not elsewhere classified; Z91.048 Other nonmedicinal substance allergy status; Z88.5 Allergy status to narcotic agent; Z88.0 Allergy status to penicillin; Z91.040 Latex allergy status

== ENCOUNTER → 2024-02-20 | Outpatient (CLI) | payer BC ==
--- NOTE | 2024-02-20 13:15 | MM ---
Reason for Exam: Follow-up at short interval from prior study. Last screening mammogram was performed 6 month(s) ago. Patient History: Menarche at age 13. First Full-Term at age 31. Late child-bearing (after 31). Postmenopausal. Patient has history of breast feeding. Breast cancer, right, age 55. Bilateral Benign Excisional Biopsy. 12/05/2020, Lumpectomy on the Right side. 12/05/2020, Benign Core Biopsy on the right side. 10/04/2020, Malignant Core Biopsy on the right side. Prior Study Comparison: 08/13/2021 Bilateral Diagnostic Mammogram, [facility]. 08/14/2022 Bilateral MG 3D diag mammo w/cad [facility], [facility]. 08/21/2023 Bilateral MG 3D diag mammo w/cad [facility], [facility]. Tissue Density: Right: The breasts are extremely dense, which lowers the sensitivity of mammography. Findings: Analyzed By CAD. The pattern is symmetrical. Scattered benign punctate calcifications are present. Surgical clips from prior biopsy. Dense calcification in the anterior portion adjacent to surgical clips. There is grouping of calcifications in the right mediolateral superior position, present previously in 2019. No significant interval change is evident. No suspicious groups of microcalcifications, spiculated or lobular masses, architectural distortion or other secondary signs of malignancy are mammographically apparent. Overall Assessment: Benign, BI-RAD 2 Management: Screening Mammogram of both breasts in 6 months. A negative mammogram report should not preclude additional follow up of suspicious palpable abnormalities. Patient should continue monthly self breast exam. A clinical breast exam by your physician is recommended on an annual basis and results should be correlated with mammographic findings. Electronically signed and approved by: Roosevelt Figueroa D.O. Radiologis
== END | disposition home or self-care (01) ==
LOC: RADMAMWWP 12:43
PROVIDERS: ATTEND Surgery
DX: R92.341 Mammographic extreme density, right breast (principal); R92.1 Mammographic calcification found on diagnostic imaging of breast; Z85.3 Personal history of malignant neoplasm of breast; Z78.0 Asymptomatic menopausal state
CPT/HCPCS: 77061; 77065

== ENCOUNTER → 2024-02-27 | Outpatient (CLI) | payer BC ==
--- NOTE | 2024-02-27 11:00 | P.PN ---
Subjective Progress Note Date: 02/27/24 02-27-242019 right breast stage I invasive ductal cancer; A0V5H1BL+OH+Her2-G2 right breast cancer surveillance The patient had a right breast stereotactic core biopsy performed on . Pathology revealed a 2 mm focus of invasive ductal carcinoma grade 1/2 arising in a background of DCIS. This was ER+OH+Her2-G1. She did not have genetic testing done. The patient had bilateral breast MRI performed on [id number]. The biopsy-proven cancer in the right breast was identified. Otherwise no lesions of concern in the right breast. No findings of concern were noted in the left breast. She underwent a right breast partial mastecotmy on 12-05-20. Pathology showed no residual tumor, SLN (-). R1LfBfR1LU+OH+Her2- stage IA. She choose not to have radiation therapy after the surgery. She is on Femara which she started 2020. She did not have any chemotherapy. She was not concerned about any new lumps masses or nodules in either breast. She is not complaining of any nipple discharge or skin changes. She does complain of some asymmetry between the breast. She is not complaining of any changes of concern in either breast at this time; She had a bilateral mammogram on 08-21-23, repeat right breast mammogram in 6 months which was repeated on 02-20-24 and was BIRAD 2. She is on Femera continues on estrace cream for vaginal dryness by medical oncology she uses this twice a week. Caffeine: 4 cups of coffee/day Nicotine: Negative Theophylline: occasional Family history: Negative Hormonal history: Menarche: 13 , breast fed: yes, age at first 31 menopause: 53 BCP:no hormones: none Surgical history: C-sections bilateral breast biopsies benign Toenail removed right breast lumpectomy and SNB Medical history: none Social history: Nicotine: Negative Alcohol: Occasional Drugs: Negative - Constitutional Constitutional: Denies chills, Denies fever - EENT Comment: wears glasses Ears: deny: decreased hearing, tinnitus Ears, nose, mouth and throat: Denies headache, Denies sore throat - Breasts Breasts: bilateral: as per HPI - Cardiovascular Cardiovascular: Denies chest pain, Denies shortness of breath - Respiratory Respiratory: Denies cough, - Gastrointestinal Gastrointestinal: Denies abdominal pain, Denies diarrhea, Denies nausea, Denies vomiting - Genitourinary (Female) Genitourinary: Denies dysuria, Denies hematuria - Menstruation Menstruation: Reports postmenopausal - Musculoskeletal Musculoskeletal: Denies myalgias - Integumentary Integumentary: Denies pruritus, Denies rash - Neurological Comment: hand tendon pain - Psychiatric Psychiatric: Denies anxiety, Denies depression - Endocrine Endocrine: Denies fatigue, Denies weight change - Hematologic/Lymphatic Comment: none - Allergic/Immunologic Allergic/Immunologic: Reports as per HPI Objective - Constitutional General appearance: Present: cooperative - EENT Eyes: Present: EOMI ENT: Present: hearing grossly normal - Neck Neck: Present: normal ROM - Respiratory Respiratory: bilateral: CTA - Cardiovascular Rhythm: regular Heart sounds: normal: S1, S2 - Gastrointestinal General gastrointestinal: Present: soft - Integumentary Integumentary: Present: normal turgor - Musculoskeletal Musculoskeletal: Present: gait normal - Psychiatric Psychiatric: Present: A&O x's 3, appropriate affect, intact judgment & insight - Additional findings Additional findings: Breast Exam: BRA: 34D Inspection: right breast slightly smaller than left breast; bilateral grade 2 ptosis palpation; right breast: scar from prior surgery, no dominant masses or nodules of concern on multiple positional exam Right axilla: No adenopathy of concern Left breast: Multi-positional exam no dominant masses or nodules of concern Left axilla: No adenopathy of concern Patient is wearing a Silastic sleeve on the right arm secondary to fullness that she feels it when she does not wear the sleeve, she only wears the sleeve at work she does not wear it at night Assessment and Plan Assessment: Impression: Right breast stage I invasive ductal carcinoma no evidence of recurrence diagnosed 2020 Asymmetry of the breasts secondary to right breast surgery Mild lymphedema right arm controlled with elastic sleeve given the option of seeing lymphedema specialist and she declined bilateral mammogram 08-21-23 repeat right in 6 monhts; personally reviewed with Dr. Horta; right bresat mammogram 02-20-24 BIRAD 2 Plan: Continue Femara/estrace vaginal cream as per medical oncology bilateral mammogram 6 months; July 2024 with follow up at that time continue to follow with medical oncology Continue elastic sleeve as needed regarding mild lymphedema follow up sooner any concerns CC: Dr. Harvey
[2024-02-27 11:31] VITALS: BP 124/77; PULSE 69; RESP 16; TEMP 98
== END ==
LOC: WWCWWP 09:40
PROVIDERS: ATTEND Surgery
DX: C50.911 Malignant neoplasm of unspecified site of right female breast (principal); N64.89 Other specified disorders of breast; I89.0 Lymphedema, not elsewhere classified; Z17.0 Estrogen receptor positive status [ER+]; Z91.048 Other nonmedicinal substance allergy status; Z88.5 Allergy status to narcotic agent; Z88.0 Allergy status to penicillin; Z91.013 Allergy to seafood

== ENCOUNTER → 2024-08-23 | Outpatient (CLI) | payer BC ==
--- NOTE | 2024-08-24 14:25 | MM ---
Reason for Exam: Hx of breast cancer, conservation therapy. Last screening mammogram was performed 12 month(s) ago. Patient History: Menarche at age 13. First Full-Term at age 31. Late child-bearing (after 31). Postmenopausal. Patient has history of breast feeding. Breast cancer, right, age 55. Bilateral Benign Excisional Biopsy. 12/05/2020, Lumpectomy on the Right side. 12/05/2020, Benign Core Biopsy on the right side. 10/04/2020, Malignant Core Biopsy on the right side. Prior Study Comparison: 08/14/2022 Bilateral MG 3D diag mammo w/cad [facility], [facility]. 08/21/2023 Bilateral MG 3D diag mammo w/cad [facility], [facility]. 02/20/2024 Right MG 3D diag mammo w/cad [facility], [facility]. Tissue Density: The breasts are heterogeneously dense, which may obscure small masses. Findings: Analyzed By CAD. Right breast surgical clips. Right breast: There is no suspicious group of microcalcifications or new suspicious mass. Benign-appearing calcifications right breast. Left breast: There is no suspicious group of microcalcifications or new suspicious mass. Benign-appearing calcifications left breast. Overall Assessment: Benign, BI-RAD 2 Management: Screening Mammogram of both breasts in [address] [facility] will attempt to contact patient to return for supplemental views and ultrasound if indicated. Patient should continue monthly self-breast exams. A clinical breast exam by your physician is recommended on an annual basis. This exam should not preclude additional follow-up of suspicious palpable abnormalities. Note on Desiree scores and lifetime risk: 1. A Desiree score greater than 3% is considered moderate risk. If this is the case, consider specialist referral to assess eligibility for a risk reducing agent. 2. If overall lifetime risk for the development of breast cancer is 20% or higher, the patient may qualify for future screening with alternating mammogram and breast MRI. [facility], , 08/24/2024 2:22 PM. Electronically signed and approved by: Nas Cifuentes DO
== END | disposition home or self-care (01) ==
LOC: RADMAMWWP 13:15
PROVIDERS: ATTEND Surgery
CPT/HCPCS: 77063; 77067

== ENCOUNTER → 2024-08-26 | Outpatient (CLI) | payer BC ==
[2024-08-26 13:46] VITALS: BP 127/77; PULSE 74; RESP 17; TEMP 97.9
--- NOTE | 2024-08-26 14:09 | P.PN ---
Subjective Progress Note Date: 08/26/24 Principal diagnosis: 2019 right breast stage I invasive ductal cancer; X1Q4N3EP+WA+Her2-G2 08-26-242019 right breast stage I invasive ductal cancer; [id number]+WA+Her2-G2 right breast cancer surveillance The patient had a right breast stereotactic core biopsy performed on . Pathology revealed a 2 mm focus of invasive ductal carcinoma grade 1/2 arising in a background of DCIS. This was ER+WA+Her2-G1. She did not have genetic testing done. The patient had bilateral breast MRI performed on [id number]. The biopsy-proven cancer in the right breast was identified. Otherwise no lesions of concern in the right breast. No findings of concern were noted in the left breast. She underwent a right breast partial mastectomy on 12-05-20. Pathology showed no residual tumor, SLN (-). T7MgSbL0JB+WA+Her2- stage IA. She choose not to have radiation therapy after the surgery. She is on Femara which she started 2020. She did not have any chemotherapy. She was not concerned about any new lumps masses or nodules in either breast. She is not complaining of any nipple discharge or skin changes. She does complain of some asymmetry between the breast. She is not complaining of any changes of concern in either breast at this time; She had a bilateral mammogram on 08-23-24 BIRAD 2, She is on Femera, tolerating without difficulty continues on estrace cream for vaginal dryness by medical oncology she uses this twice a week. Caffeine: 4 cups of coffee/day Nicotine: Negative Theophylline: occasional Family history: Negative Hormonal history: Menarche: 13 , breast fed: yes, age at first 31 menopause: 53 BCP:no hormones: none Surgical history: C-sections bilateral breast biopsies benign Toenail removed right breast lumpectomy and SNB Medical history: none Social history: Nicotine: Negative Alcohol: Occasional Drugs: Negative - Constitutional Constitutional: Denies chills, Denies fever - EENT Comment: wears glasses Ears: deny: decreased hearing, tinnitus Ears, nose, mouth and throat: Denies headache, Denies sore throat - Breasts Breasts: bilateral: as per HPI - Cardiovascular Cardiovascular: Denies chest pain, Denies shortness of breath - Respiratory Respiratory: Denies cough, - Gastrointestinal Gastrointestinal: Denies abdominal pain, Denies diarrhea, Denies nausea, Denies vomiting - Genitourinary (Female) Genitourinary: Denies dysuria, Denies hematuria - Menstruation Menstruation: Reports postmenopausal - Musculoskeletal Musculoskeletal: Denies myalgias - Integumentary Integumentary: Denies pruritus, Denies rash - Neurological Comment: hand tendon pain - Psychiatric Psychiatric: Denies anxiety, Denies depression - Endocrine Endocrine: Denies fatigue, Denies weight change - Hematologic/Lymphatic Comment: none - Allergic/Immunologic Allergic/Immunologic: Reports as per HPI Objective - Vital Signs Vital signs: Vital Signs Temp 97.9 F 08/26/24 13:44 Pulse 74 08/26/24 13:44 Resp 17 08/26/24 13:44 BP 127/77 08/26/24 13:44 Pulse Ox 98 08/26/24 13:44 FiO2 Intake & Output 08/25/24 08/26/24 08/26/24 18:59 06:59 18:59 Weight 63.503 kg - Constitutional General appearance: Present: cooperative - EENT Eyes: Present: EOMI ENT: Present: hearing grossly normal - Neck Neck: Present: normal ROM - Respiratory Respiratory: bilateral: CTA - Cardiovascular Rhythm: regular Heart sounds: normal: S1, S2 - Integumentary Integumentary: Present: normal turgor - Musculoskeletal Musculoskeletal: Present: gait normal - Psychiatric Psychiatric: Present: A&O x's 3, appropriate affect, intact judgment & insight - Additional findings Additional findings: Breast Exam: BRA: 34D Inspection: right breast slightly smaller than left breast; bilateral grade 2 ptosis palpation; right breast: scar from prior surgery, no dominant masses or nodules of concern on multiple positional exam Right axilla: No adenopathy of concern Left breast: Multi-positional exam no dominant masses or nodules of concern Left axilla: No adenopathy of concern Patient is wearing a Silastic sleeve on the right arm secondary to fullness that she feels it when she does not wear the sleeve, she only wears the sleeve at work she does not wear it at night Assessment and Plan Assessment: Impression: Right breast stage I invasive ductal carcinoma no evidence of recurrence diagnosed 2020 Asymmetry of the breasts secondary to right breast surgery Mild lymphedema right arm controlled with elastic sleeve given the option of seeing lymphedema specialist and she declined bilateral mammogram 08-23-24 BIRAD 2 personally reviewed Plan: Continue Femara/estrace vaginal cream as per medical oncology follow up in 6 months, bilateral mammogram in one year, July 2025 continue to follow with medical oncology Continue elastic sleeve as needed regarding mild lymphedema follow up sooner any concerns CC: Dr. Harvey
== END ==
LOC: WWCWWP 13:09
PROVIDERS: ATTEND Surgery
DX: C50.911 Malignant neoplasm of unspecified site of right female breast (principal); N64.89 Other specified disorders of breast; I89.0 Lymphedema, not elsewhere classified; Z17.0 Estrogen receptor positive status [ER+]; Z98.890 Other specified postprocedural states; Z91.048 Other nonmedicinal substance allergy status; Z88.5 Allergy status to narcotic agent; Z88.0 Allergy status to penicillin; Z91.013 Allergy to seafood

== ENCOUNTER → 2025-03-18 | Outpatient (CLI) | payer BC ==
[2025-03-18 12:30] VITALS: BP 129/75; PULSE 67; RESP 16; TEMP 98
--- NOTE | 2025-03-18 12:46 | P.PN ---
Subjective Progress Note Date: 03/18/25 Principal diagnosis: 2019 right breast stage I invasive ductal cancer; [id number]-G2 03-18-25 Principal diagnosis: 2019 right breast stage I invasive ductal cancer; [id number]+Her2-G2 right breast cancer surveillance The patient had a right breast stereotactic core biopsy performed on . Pathology revealed a 2 mm focus of invasive ductal carcinoma grade 1/2 arising in a background of DCIS. This was ER+WY+Her2-G1. She did not have genetic testing done. The patient had bilateral breast MRI performed on [id number]. The biopsy-proven cancer in the right breast was identified. Otherwise no lesions of concern in the right breast. No findings of concern were noted in the left breast. She underwent a right breast partial mastectomy on 12-05-20. Pathology showed no residual tumor, SLN (-). [id number]+Her2- stage IA. She choose not to have radiation therapy after the surgery. She is on Femara which she started 2020. She did not have any chemotherapy. She was not concerned about any new lumps masses or nodules in either breast. She is not complaining of any nipple discharge or skin changes. She does complain of some asymmetry between the breast. She is not complaining of any changes of concern in either breast at this time; She had a bilateral mammogram on 08-23-24 BIRAD 2, She is on Femera, tolerating without difficulty continues on estrace cream for vaginal dryness by medical oncology she uses this twice a week. She is using an elastic sleeve on the right arm their is no increase in any lymphedema clinically; Caffeine: 4 cups of coffee/day Nicotine: Negative Theophylline: occasional Family history: Negative Hormonal history: Menarche: 13 , breast fed: yes, age at first 31 menopause: 53 BCP:no hormones: none Surgical history: C-sections bilateral breast biopsies benign Toenail removed right breast lumpectomy and SNB Medical history: none Social history: Nicotine: Negative Alcohol: Occasional Drugs: Negative - Constitutional Constitutional: Denies chills, Denies fever - EENT Comment: wears glasses Ears: deny: decreased hearing, tinnitus Ears, nose, mouth and throat: Denies headache, Denies sore throat - Breasts Breasts: bilateral: as per HPI - Cardiovascular Cardiovascular: Denies chest pain, Denies shortness of breath - Respiratory Respiratory: Denies cough, - Gastrointestinal Gastrointestinal: Denies abdominal pain, Denies diarrhea, Denies nausea, Denies vomiting - Genitourinary (Female) Genitourinary: Denies dysuria, Denies hematuria - Menstruation Menstruation: Reports postmenopausal - Musculoskeletal Musculoskeletal: Denies myalgias - Integumentary Integumentary: Denies pruritus, Denies rash - Neurological Comment: hand tendon pain - Psychiatric Psychiatric: Denies anxiety, Denies depression - Endocrine Endocrine: Denies fatigue, Denies weight change - Hematologic/Lymphatic Comment: none - Allergic/Immunologic Allergic/Immunologic: Reports as per HPI Objective - Vital Signs Vital signs: Vital Signs Temp 98 F 03/18/25 12:26 Pulse 67 03/18/25 12:26 Resp 16 03/18/25 12:26 BP 129/75 03/18/25 12:26 Pulse Ox 100 03/18/25 12:26 FiO2 Intake & Output 03/17/25 03/18/25 03/18/25 18:59 06:59 18:59 Weight 63.503 kg - Constitutional General appearance: Present: cooperative - EENT Eyes: Present: EOMI ENT: Present: hearing grossly normal - Neck Neck: Present: normal ROM - Respiratory Respiratory: bilateral: CTA - Cardiovascular Rhythm: regular Heart sounds: normal: S1, S2 - Integumentary Integumentary: Present: normal turgor - Musculoskeletal Musculoskeletal: Present: gait normal - Psychiatric Psychiatric: Present: A&O x's 3, appropriate affect, intact judgment & insight - Additional findings Additional findings: Breast Exam: BRA: 34D Inspection: right breast slightly smaller than left breast; bilateral grade 2 ptosis palpation; right breast: scar from prior surgery, no dominant masses or nodules of concern on multiple positional exam Right axilla: No adenopathy of concern Left breast: Multi-positional exam no dominant masses or nodules of concern Left axilla: No adenopathy of concern Patient is wearing a Silastic sleeve on the right arm secondary to fullness that she feels it when she does not wear the sleeve, she only wears the sleeve at work she does not wear it at night When measured for lymphedema the following is noted: Right arm 3 cm from wrist 16 cm/left arm 3 cm from wrist 15.5 cm Right arm 3 cm from elbow 25 cm Left arm 3 cm from elbow 26 cm Assessment and Plan Assessment: Impression: Right breast stage I invasive ductal carcinoma no evidence of recurrence chelita gnosed 2019 Asymmetry of the breasts secondary to right breast surgery Mild lymphedema right arm controlled with elastic sleeve given the option of seeing lymphedema specialist and she declined bilateral mammogram 08-23-24 BIRAD 2 personally reviewed Plan: Continue Femara/estrace vaginal cream as per medical oncology follow up in 6 months, bilateral mammogram July 2025 continue to follow with medical oncology Continue elastic sleeve as needed regarding mild lymphedema follow up sooner any concerns declined appointment with pysical therapy uses a massage machine CC: Dr. Harvey
== END ==
LOC: WWCWWP 10:54
PROVIDERS: ATTEND Surgery
DX: Z12.31 Encounter for screening mammogram for malignant neoplasm of breast (principal); D05.11 Intraductal carcinoma in situ of right breast; I89.0 Lymphedema, not elsewhere classified; Z91.048 Other nonmedicinal substance allergy status; Z91.013 Allergy to seafood; Z88.5 Allergy status to narcotic agent; Z88.0 Allergy status to penicillin